=== PATIENT | female | born 1970 | race Hispanic/Latino ===

== ENCOUNTER 2019-08-31 22:10 | Emergency (ER) | payer BC ==
[~2019-08-31] VITALS: Ht 162.6 cm; Wt 90.3 kg
[2019-08-31] MEDS ORDERED: INSULIN REGULAR, HUMAN 100 UNIT/1 ML 3ML VIAL ONE (22:42)
[2019-08-31] MEDS ORDERED: INSULIN REGULAR, HUMAN 100 UNIT/1 ML 3ML VIAL SQ ONE (22:45)
== END 2019-08-31 23:29 | disposition home or self-care (01) ==
LOC: FSED 22:10
DX: E11.65 Type 2 diabetes mellitus with hyperglycemia (principal)
CPT/HCPCS: 80053; 81003; 85025; 93005; 99283; J1817